=== PATIENT | female | born 1975 | race American Indian/Alaskan Native ===

== ENCOUNTER 2018-10-06 19:22 | Emergency (ER) | payer MEDICAID ==
[2018-10-06 20:44] LABS: BUN/Creatinine Ratio 10; Blood Urea Nitrogen 8 mg/dL (7-17); Calcium 8.6 mg/dL (8.4-10.2); Hemolysis Index 12
[2018-10-06 21:16] LABS: Basophils % (Auto) 0.5 % (0.0-1.8); Eosinophils # (Auto) 0.1 K/mm3 (0.0-0.4); Eosinophils % (Auto) 1.6 % (0.0-4.3); Hemoglobin 10.2 gm/dl (10.1-14.3); Lymphocytes # (Auto) 1.7 K/mm3 (1.2-5.4); Lymphocytes % (Auto) 28.9 % (13.4-35.0); Mean Corpuscular HGB Conc 31 % (30-34); Mean Corpuscular Volume 76 fl (79-97); Monocytes # (Auto) 0.3 K/mm3 (0.0-0.8); Monocytes % (Auto) 5.6 % (0.0-7.3); Platelet Count 216 K/mm3 (140-440); Red Blood Count 4.35 M/mm3 (3.65-5.03)
[2018-10-06 21:18] LABS: Color,Urine Yellow (Yellow)
[2018-10-06 21:19] LABS: Bacteria,Urine 1+ /HPF (Negative); Bilirubin,Urine NEG (Negative); Blood,Urine MOD (Negative); Mucus,Urine 1+ /HPF
--- NOTE | 2018-10-06 22:22 | Emergency Department Report ---
HPI - General Chief Complaint: Vaginal Bleeding Time Seen by Provider: 10/06/18 22:09 - HPI HPI: Room 4 The patient is a 43-year-old female presenting with chief complaint of vaginal bleeding. The patient states she's had continuous vaginal bleeding since September 07. The patient states it started off like her normal cycle then she began going through 5-6 pads per day. After approximately a week and a half bleeding decreased to approximately 3-4 pads per day but never stopped. Patient denies any unexplained weight loss, fever or dysuria. The patient states she's never had episodes of abnormal vaginal bleeding like this before. Patient admit s to intermittent cramping lower abdominal pain Location: Genitourinary system Duration: Constant since 09/07/2018 Quality: Cramping Severity: Moderate Modifying factors: [see above] Context: [see above] Mode of transportation: Unknown ED Past Medical Hx - Past Medical History Previous Medical History?: No Additional medical history: anemia hx c transfusions - no problems - Surgical History Additional Surgical History: Ectopic - Family History Family history: no significant - Social History Smoking Status: Never Smoker Substance Use Type: None (denies illicit drug use) - Medications Home Medications: Home Medications Medication Instructions Recorded Confirmed Last Taken Type Acetaminophen with Codeine 5 ml PO QID PRN #90 ml 09/01/14 Unknown Rx [Acetaminophen-Codeine ORAL LIQ] Azithromycin [Zithromax Z-DAVID] 250 mg PO DAILY #6 tablet 09/01/14 Unknown Rx Ibuprofen [Motrin 800 MG tab] 800 mg PO Q8HR PRN #20 tablet 10/06/18 Unknown Rx medroxyPROGESTERone ACETATE 10 mg PO QDAY #10 tablet 10/06/18 Unknown Rx [Provera] traMADol [Ultram] 50 mg PO Q6HR PRN #10 tablet 10/06/18 Unknown Rx ED Review of Systems ROS: Stated complaint: STOMACH PAIN Other details as noted in HPI Constitutional: no symptoms reported Eyes: denies: eye pain ENT: denies: throat pain Respiratory: no symptoms reported Cardiovascular: denies: chest pain Endocrine: no symptoms reported Gastrointestinal: abdominal pain Genitourinary: abnormal menses. denies: dysuria Musculoskeletal: denies: back pain Neurological: denies: headache Physical Exam - Physical Exam Vital Signs: Vital Signs 10/06/18 19:38 Temperature 99.0 F Pulse Rate 70 Respiratory 18 Rate Blood Pressure 155/90 O2 Sat by Pulse 100 Oximetry Physical Exam: GENERAL: The patient is well-developed well-nourished female lying on stretcher not appear to be in acute distress. [] HEENT: Normocephalic. Atraumatic. Extraocular motions are intact. Patient has moist mucous membranes. NECK: Supple. Trachea midline CHEST/LUNGS: Clear to auscultation. There is no respiratory distress noted. HEART/CARDIOVASCULAR: Regular. There is no tachycardia. There is no gallop rub or murmur. ABDOMEN: Abdomen is soft, with mild discomfort to palpation left lower quadrant. Patient has normal bowel sounds. There is no abdominal distention. SKIN: There is no rash. There is no edema. There is no diaphoresis. NEURO: The patient is awake, alert, and oriented. The patient is cooperative. The patient has normal speech MUSCULOSKELETAL: There is no evidence of acute injury. PELVIC: No blood seen in the vaginal vault ED Course Vital Signs 10/06/18 19:38 Temperature 99.0 F Pulse Rate 70 Respiratory 18 Rate Blood Pressure 155/90 O2 Sat by Pulse 100 Oximetry ED Medical Decision Making - Lab Data Result diagrams: 10/06/18 20:16 10/06/18 20:17 Laboratory Tests 10/06/18 10/06/18 10/06/18 20:09 20:09 20:16 WBC 6.0 RBC 4.35 Hgb 10.2 Hct 33.0 MCV 76 L MCH 23 L MCHC 31 RDW 20.0 H Plt Count 216 Lymph % (Auto) 28.9 Mcdonald % (Auto) 5.6 Eos % (Auto) 1.6 Baso % (Auto) 0.5 Lymph # 1.7 Mcdonald # 0.3 Eos # 0.1 Baso # 0.0 Seg Neutrophils % 63.4 Seg Neutrophils # 3.8 Sodium Potassium Chloride Carbon Dioxide Anion Gap BUN Creatinine Estimated GFR BUN/Creatinine Ratio Glucose Calcium HCG, Qual Negative Urine Color Urine Turbidity Urine pH Ur Specific Anderson Urine Protein Urine Glucose (UA) Urine Ketones Urine Blood Urine Nitrite Urine Bilirubin Urine Urobilinogen Ur Leukocyte Esterase Urine WBC (Auto) Urine RBC (Auto) U Epithel Cells (Auto) Urine Bacteria (Auto) Urine Mucus Blood Type O POSITIVE Antibody Screen Negative 10/06/18 10/06/18 20:17 20:53 WBC RBC Hgb Hct MCV MCH MCHC RDW Plt Count Lymph % (Auto) Mcdonald % (Auto) Eos % (Auto) Baso % (Auto) Lymph # Mcdonald # Eos # Baso # Seg Neutrophils % Seg Neutrophils # Sodium 136 L Potassium 3.5 L Chloride 101.4 Carbon Dioxide 26 Anion Gap 12 BUN 8 Creatinine 0.8 Estimated GFR > 60 BUN/Creatinine Ratio 10 Glucose 106 H Calcium 8.6 HCG, Qual Urine Color Yellow Urine Turbidity Clear Urine pH 6.0 Ur Specific Anderson 1.026 Urine Protein 30 mg/dl Urine Glucose (UA) Neg Urine Ketones Neg Urine Blood Mod Urine Nitrite Neg Urine Bilirubin Neg Urine Urobilinogen 4.0 Ur Leukocyte Esterase Tr Urine WBC (Auto) 9.0 H Urine RBC (Auto) 12.0 U Epithel Cells (Auto) 3.0 Urine Bacteria (Auto) 1+ Urine Mucus 1+ Blood Type Antibody Screen - Radiology Data Radiology results: report reviewed (pelvic ultrasound), image reviewed (pelvic ultrasound) [facility] [address] [place] [address] Ultrasound Report Signed Patient: AMAIRANI CABAN MR#: [id number] : 1975 Acct:[id number] Age/Sex: 43 / F ADM Date: 10/06/18 Loc: ED Attending Dr: Ordering Physician: AILYN ROBLERO MD Date of Service: 10/06/18 Procedure(s): US transvaginal Accession Number(s): [id number] cc: AILYN ROBLERO MD PROCEDURE: US pelvis TRANSVAGINAL TECHNIQUE: Real-time transabdominal sonography in multiple planes of the pelvis was performed. The pelvic structures, especially the ovaries, were not optimally visualized. Transvaginal sonography was then performed to better evaluate the structures and/or abnormalities described below with image documentation. HISTORY: menorrhagia COMPARISONS: None . FINDINGS: UTERUS Size: 8.6 x 4.8 x 5.3 cm. Endometrial thickness: 13 mm. Orientation: anteverted. Cervix: Normal. Fibroids/masses: There is a fibroid in the posterior myometrium this measures 23 mm.. RIGHT Ovary: 4.3 x 3.4 x 2.4 cm. Appearance: There are 2 follicular cysts identified on this study. The largest measures 17 mm. LEFT Ovary: Not visualized on this study Pelvic fluid: None. Other: None. IMPRESSION: The uterus size is normal. There is a 23 mm fibroid in the posterior uterine myometrium. There are 2 follicular cysts identified in the right ovary. The largest measures 17 mm. The left ovary is not visualized.. This document is electronically signed by Sandra Villar DO., October 06 2018 11:17:38 PM ET Transcribed By: [facility] Dictated By: SANDRA VILLAR MD Electronically Authenticated By: SANDRA VILLAR MD Signed Date/Time: 10/06/182318 DD/ 07 TD/TT: 10/06/182308 - Differential Diagnosis menorrhagia, uterine fibroids, uterine CA Critical care attestation.: If time is entered above; I have spent that time in minutes in the direct care of this critically ill patient, excluding procedure time. ED Disposition Clinical Impression: Menorrhagia, Uterine fibroid Disposition: - TO HOME OR SELFCARE Is pt being admited?: No Does the pt Need Aspirin: No Condition: Stable Instructions: Menorrhagia (ED) Additional Instructions: Return to the emergency department immediately should you develop worsening symptoms, fever, inability to tolerate food or liquid or any other concerns. Prescriptions: Ibuprofen [Motrin 800 MG tab] 800 mg PO Q8HR PRN #20 tablet PRN Reason: Pain, Moderate (4-6) medroxyPROGESTERone ACETATE [Provera] 10 mg PO QDAY #10 tablet traMADol [Ultram] 50 mg PO Q6HR PRN #10 tablet PRN Reason: Pain Referrals: [facility] [Provider Group] - 3-5 Days Time of Disposition: 23:48
--- NOTE | 2018-10-06 23:19 | Ultrasound Report ---
PROCEDURE: US pelvis TRANSVAGINAL TECHNIQUE: Real-time transabdominal sonography in multiple planes of the pelvis was performed. The p elvic structures, especially the ovaries, were not optimally visualized. Transvaginal sonography was then performed to better evaluate the structures and/or abnormalities described below with image docu mentation. HISTORY: menorrhagia COMPARISONS: None . FINDINGS: UTERUS Size: 8.6 x 4.8 x 5.3 cm. Endometrial thickness: 13 mm. Orientation: anteverted. Cervix: Normal. Fibroids/masses: There is a fibroid in the posterior myometrium this measures 23 mm.. RIGHT Ovary: 4.3 x 3.4 x 2.4 cm. Appearance: There are 2 follicular cysts identified on this study. The largest measures 17 mm. LEFT Ovary: Not visualized on this study Pelvic fluid: None. Other: None. IMPRESSION: The uterus size is normal. There is a 23 mm fibroid in the posterior uterine myometrium. There are 2 follicular cysts identified in the right ovary. The largest measures 17 mm. The left ovar y is not visualized.. This document is electronically signed by Sandra Villar DO., October 06 2018 11:17:38 PM ET
[2018-10-07 02:06] VITALS: BP 122/74
== END 2018-10-06 23:00 | disposition home or self-care (01) ==
LOC: ED 19:22
DX: N92.0 Excessive and frequent menstruation with regular cycle (principal); D25.9 Leiomyoma of uterus, unspecified; Z86.2 Personal history of diseases of the blood and blood-forming organs and certain disorders involving the immune mechanism; Z79.899 Other long term (current) drug therapy
CPT/HCPCS: 36415; 76830; 76856; 80048; 81001; 84703; 85025; 86850; 86900; 86901